=== PATIENT | male | born 1995 | race African-American/Black ===

== ENCOUNTER 2020-08-12 02:55 | Emergency (ER) | payer BC ==
[2020-08-12] MEDS ORDERED: Silver Nitrate Application 1 EACH ONE (05:25)
[2020-08-12] MEDS ORDERED: Bacitracin 1 PK ONE (05:25)
== END 2020-08-12 05:59 | disposition home or self-care (01) ==
LOC: ERS 02:55
DX: S61.411A Laceration without foreign body of right hand, initial encounter (principal); X99.8XXA Assault by other sharp object, initial encounter
CPT/HCPCS: 12002